=== PATIENT | female | born 2000 | race Caucasian/White ===

== ENCOUNTER 2022-07-03 15:46 | Emergency (ER) | payer OTHER ==
[~2022-07-03] VITALS: Ht 157.5 cm; Wt 78.0 kg
[2022-07-03 15:50] VITALS: BP 125/72
[2022-07-03] MEDS ORDERED: AMOX500C25 PO (16:33)
[2022-07-03] MEDS ORDERED: IBUP-2213 PO (16:33)
[2022-07-03] MEDS ORDERED: BENZ-300 PO (16:33)
--- NOTE | 2022-07-03 16:57 | NUR ---
Note undone in EDM - 07/03/22 at 1700 by PHSEP Patient discharged with v/s stable. Written and verbal after care instructions FOR PHARYNGITIS given and explained. Patient alert, oriented and verbalized understanding of instructions. Ambulatory with steady gait. All questions addressed prior to discharge. ID band removed. Patient advised to follow up with PMD. Rx of AMOXICILLIN, BENZOCAINE AND IBUPROFEN given. Opportunity to ask questions provided and answered.
--- NOTE | 2022-07-03 16:59 | NUR ---
22 Y/O FEMALE BIB SELF C/O SOB TODAY, PER PT SHE HAS BEEN HAVING PRODUCTIVE COUGH, SORE THROATX6 DAYS, LAST TOOK INHALER THIS AM. NO WOB NOTED, NO ACTIVE WHEEZING NOTED AT THIS TIME. NKA PMH: ASTHMA
--- NOTE | 2022-07-03 17:00 | NUR ---
pt swabbed for covid(audrey) and flu. walked to lab
--- NOTE | 2022-07-03 17:01 | NUR ---
Patient discharged with v/s stable. Written and verbal after care instructions FOR PHARYNGITIS given and explained. Patient alert, oriented and verbalized understanding of instructions. Ambulatory with steady gait. All questions addressed prior to discharge. ID band removed. Patient advised to follow up with PMD. Rx of AMOXICILLIN, BENZOCAINE AND IBUPROFEN given. Opportunity to ask questions provided and answered.
== END 2022-07-03 17:01 | disposition home or self-care (01) ==
LOC: MED 15:46
DX: J02.8 Acute pharyngitis due to other specified organisms (principal); Z20.822 Contact with and (suspected) exposure to COVID-19; B96.89 Other specified bacterial agents as the cause of diseases classified elsewhere; Z79.899 Other long term (current) drug therapy
CPT/HCPCS: 71045; 99284

== ENCOUNTER 2022-09-11 15:08 | Emergency (ER) | payer OTHER ==
[~2022-09-11] VITALS: Ht 157.5 cm; Wt 77.1 kg
[~2022-09-11 15:08] MED LIST: AMOX500C25 PO; BENZ-300 PO; IBUP-2213 PO
[2022-09-11 15:52] VITALS: BP 132/69
[2022-09-11] MEDS ORDERED: APAP-896 PO (16:11)
[2022-09-11] MEDS ORDERED: BENZ200C4 PO (16:11)
[2022-09-11] MEDS ORDERED: BENZ-300 PO (16:11)
[2022-09-11 16:52] VITALS: BP 122/69
--- NOTE | 2022-09-11 16:52 | NUR ---
Jt grier in [facility] - 09/11/22 at 1819 by [id number] The patient's care was reviewed and supervised by Louise Russ ED, RN.
--- NOTE | 2022-09-11 16:52 | NUR ---
Patient discharged with v/s stable. Written and verbal after care instructions given and explained. Patient alert, oriented and verbalized understanding of instructions. Ambulatory with steady gait. All questions addressed prior to discharge. ID band removed. Patient advised to follow up with PMD. Rx of GUAIFEN, BENZONATATE AND BENZOCAINE given. Opportunity to ask questions provided and answered.
--- NOTE | 2022-09-11 16:52 | NUR ---
The patient's care was reviewed and supervised by [facility], RN.
== END 2022-09-11 16:52 | disposition home or self-care (01) ==
LOC: MED 15:08
DX: J06.9 Acute upper respiratory infection, unspecified (principal); Z20.822 Contact with and (suspected) exposure to COVID-19; R51.9 Headache, unspecified; J02.9 Acute pharyngitis, unspecified; J45.909 Unspecified asthma, uncomplicated; Z79.899 Other long term (current) drug therapy
CPT/HCPCS: 87081; 99283